=== PATIENT | female | born 1935 | race Caucasian/White ===

== ENCOUNTER 2019-06-15 10:36 | Emergency (ER) | payer OTHER ==
--- NOTE | 2019-06-15 10:55 | PDOC ---
History of Present Illness - General Stated Complaint: FALL Time Seen by Provider: 06/15/19 10:55 Past History - Past Medical History Allergies/Adverse Reactions: Allergies Allergy/AdvReac Type Severity Reaction Status Date / Time Sulfa (Sulfonamide Allergy Verified 06/15/19 11:03 Antibiotics) Home Medications: Ambulatory Orders Cephalexin Monohydrate [Keflex -] 500 mg PO BID 7 Days #14 capsule 06/15/19 ED Treatment Course - LABORATORY CBC & Chemistry Diagram: 06/15/19 11:00 06/15/19 11:00 Medical Decision Making - Medical Decision Making 06/15/19 11:42 HPI: 84yo F hx dementia (baseline A&Ox1, nonambulatory), UTIs, hypothyroidism, HTN, squamous cell carcinoma of skin, blepharitis, frequent falls, and hx superior rim pubis fracture BIBA from [facility] found down on L side with head against wall next to bed at lowest height this AM, LKN last PM. Pt was found down alert at baseline mental status. Per NH, pt was in [facility] yesterday. PCP - Jayme Henley ROS: unable to perform 2/2 dementia PE: Gen: Alert, NAD, comfortable-appearing. HEENT: PERRL, EOMI, MMM, NCAT. No conjunctival pallor. Sclera are non-icteric. b /l lower lid blepharitis CV: Regular rate and rhythm. No murmurs, rubs, or gallops. PULM: No resp distress. CTAB, no wheezes, rales, or rhonchi. ABD: soft, NT/ND, no rebound tenderness or guarding, no CVA tenderness. BACK: No TTP of c/t/l-spine. No step-offs or deformities. MSK: No bony deformities. 2+ pulses in all extremities. Pelvis stable, intact. No TTP of extremities. NEURO: alert but not oriented. PERRL. No gross CN deficits. Strength and sensation grossly intact throughout. Does not follow commands. EXTREMITIES: No cyanosis. No clubbing. No edema. No calf tenderness. No TTP of extremities. PSYCH: Normal mood. SKIN: Warm and dry. Normal capillary refill. No jaundice. No e/o trauma. +skin markings c/w known squamous cell carcinoma. MDM: 84yo F hx dementia (baseline A&Ox1, nonambulatory), UTIs, hypothyroidism, HTN, squamous cell carcinoma of skin, blepharitis, frequent falls, and hx superior rim pubis fracture BIBA from [facility] found down on L side with head against wall next to bed at lowest height this AM, LKN last PM. Hemodynamically stable, afebrile, alert but not oriented (baseline per NH and daughter), no other gross neurologic deficits or pains or e/o trauma. Ddx: no e/o trauma/pain, but r/o injuries 2/2 fall with CTH/c-spine, CXR, and pelvis/hip XR. Due to baseline AMS, consider seizure vs syncope vs mechanical fall from bed, ddx for seizure vs syncope includes ICH, stroke, ACS/NH, arrhythmia, infection, metabolic derangement, anemia, thyroid pathology -IVF -CTH/c-spine -EKG -CXR, Pelvic XR -CBC,CMP,Coags,Mg,Phos,TSH,Cardiac profile,UA/UC -Discussed with daughter Helen at [phone] - confirms baseline mental status -Dispo: pending w/u and reassessment 06/15/19 13:24 XRs reviewed: no acute pathology EKG reviewed: NSR, 68bpm, normal axis, normal intervals, no e/o acute ischemia CTs reviewed: no acute pathology Labs reviewed: no concerning findings Pending UA/UC straight cath. 06/15/19 14:55 UA reviewed: positive for UTI - Keflex Will discharge to [place] with Keflex and PCP f/u. Return precautions given to NH. NH understands all discharge instructions and all questions were answered. Discharge - Discharge Information Problems reviewed: Yes Clinical Impression/Diagnosis: UTI (urinary tract infection), Fall Condition: Stable Disposition: INTERMEDIATE FACILITY - Admission No - Additional Discharge Information Prescriptions: Cephalexin Monohydrate [Keflex -] 500 mg PO BID 7 Days #14 capsule - Follow up/Referral Referrals: Jayme Henley [Primary Care Provider] - - Patient Discharge Instructions Patient Printed Discharge Instructions: DI for Urinary Tract Infection (UTI) Additional Instructions: You have been diagnosed with a UTI. Take Keflex 500mg BID for 7 days for UTI. Follow up with your primary care doctor within [address] scan of your head and neck, your X-rays of your chest and pelvis, your EKG, and your blood work showed no other concerning emergent conditions. Return to the Emergency Department immediately for any new or concerning symptoms including vomiting, fever, abdominal pain, or passing out. - Post Discharge Activity
--- NOTE | 2019-06-15 10:57 | PDOC ---
Attending Attestation - Resident Resident Name: Radha Tobias - ED Attending Attestation I have performed the following: I have examined & evaluated the patient, The case was reviewed & discussed with the resident, I agree w/resident's findings & plan - HPI HPI: 06/15/19 11:31 84 YOF h/o Dementia, UTI, muscle weakness, hypothyorid, HTN, frequent falls from [place] after being found down next to her bed. Baseline nonambulatory. Alert, oriented x 0, mumbles, minimally communicative. - Physicial Exam PE: 06/15/19 10:56 Physical exam: General: demented, NAD, easily agitated HEENT: NCAT, PERRL, EOMI. b/l conjunctival erythema, no discharge. Airway intact. No battles sign or raccoon eyes. No e/o ocular. Dentition intact. No e/ o septal hematoma, nasal bridge stable. Neck: neck supple, no midline C spine tenderness or deformity, ROM intact. No anterior mass or crepitus, trachea midline. Resp: Lungs clear bilaterally Chest: no clavicle or chest wall tenderness or crepitus CVS: RRR, 2+ pulses throughout. Abdomen: Abdomen soft, nontender, nondistended. Back: Back nontender, no midline spinal tenderness along cervical/thoracic/ lumbar spine, FROM, no stepoffs. MSK: Pelvis stable, Extremities symmetric, no focal areas of tenderness or deformities, proximal and distally; no pain on axial loading. FROM in all extrem. Neuro: Alert, awake, oriented x 0, demented, mumbled speech (baseline) Skin: intact, normal color and well perfused. squamous cell lesions on chest wall, and lower extremities. 06/15/19 11:13 06/15/19 11:31 - Medical Decision Making 06/15/19 10:56 Vital Signs Temp Pulse Resp BP Pulse Ox 66 16 156/62 99 06/15/19 11:00 06/15/19 11:00 06/15/19 11:00 06/15/19 11:00 ddx: ICH, SDH/ EDH, skull fx, C spine injury/strain, extremity sprain/fracture, pelvis fracture. MSK contusion, msk spasms. Rib fractures. Clinically doubt Intra abdominal and thoracic injuries/bleed UTI, infection, pna, anemia, electrolyte/metabolic derangements, dehydration. labs and lytes/trop UA/culture, check for infection pt's hpi and pe is limited 2/ dementia 06/15/19 12:[address] negative for bleed mass or fracture. No evidence of infarction. CT C- spine is also negative for fracture subluxation. Degenerative changes noted. Patient does not endorse any neck pain No evidence of skull fracture, intracranial bleed, dental trauma, cervical, thoracic, or vertebral fracture or subluxation, no suspicion of thoracic, abdominal, pelvic or extremity injury by exam. 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 SI joints are patient, no signs of femoral dislocation, proximal right sided femoral fracture from previous injury with [address] Chest x-ray is unremarkable, no acute pathology labs and lytes wnl UA grossly positive with +nitrites, WBCs and leuk esterase, will treat as UTI, keflex x 1 wk course. f/u cultures stable for transfer back to [facility] with abx discharge back to [facility], with negative workup. no traumatic injuries, no medical findings to warrant admission. at baseline mental and physical status. 06/15/19 15:08 06/15/19 15:11 Heart Score/ECG Review #1 ECG reviewed & interpreted by me at: 10:55 General ECG Interpretation: Sinus Rhythm, Normal Rate, Normal Intervals 06/15/19 11:46 EKG normal sinus rhythm 60 bpm, no interval abnormalities, narrow QRS, ST and T wave segments and morphology normal. Nonspecific T wave abnormalities
[2019-06-15 11:02] VITALS: BMI 18.3
[2019-06-15 11:56] LABS: BASO % 0.3 % (0-2.0); EOS % 0.9 % (0-4.5); HEMATOCRIT 43.5 % (32.4-45.2); HEMOGLOBIN 14.5 GM/dL (10.7-15.3); LYMPH % 12.2 % (8-40); MCH 30.8 pg (25.7-33.7); MCHC 33.4 g/dl (32.0-36.0); MEAN PLT VOLUME 8.7 fl (7.5-11.1); MONO % 4.6 % (3.8-10.2); PLATELET COUNT 297 K/MM3 (134-434); RBC 4.73 M/mm3 (3.60-5.2); RDW 13.6 % (11.6-15.6); WHITE BLOOD COUNT 11.2 K/mm3 (4.0-10.0)
[2019-06-15 12:20] LABS: INR 0.97 (0.83-1.09); PROTHROMBIN TIME (PATIENT) 11.4 SEC (9.7-13.0)
[2019-06-15 12:23] LABS: ACTIVATED PTT 31.7 SECONDS (25.2-36.5)
[2019-06-15 12:30] LABS: ALBUMIN 3.8 g/dl (3.4-5.0); ALK PHOS 117 U/L (45-117); ANION GAP 8 MMOL/L (8-16); BILIRUBIN,TOTAL 0.3 mg/dL (0.2-1); BLOOD UREA NITROGEN 20.4 mg/dL (7-18); CALCIUM 9.5 mg/dL (8.5-10.1); CHLORIDE 106 mmol/L (98-107); CO2 28 mmol/L (21-32); CREATININE 0.7 mg/dL (0.55-1.3); GLUCOSE,RANDOM 140 mg/dL (74-106); PHOSPHOROUS 2.4 mg/dL (2.5-4.9); POTASSIUM 4.5 mmol/L (3.5-5.1); SGOT/AST 24 U/L (15-37); SGPT/ALT 18 U/L (13-61); SODIUM 142 mmol/L (136-145); TOT PROT 7.2 g/dl (6.4-8.2)
[2019-06-15] MEDS ORDERED: SODIUM CHLORIDE 0.9% 500 ML INFUS.BAG IV ONE (12:51)
[2019-06-15 14:40] LABS: EPI CELLS 5.1 /HPF (0-5/HPF); HYALINE CASTS 26 /lpf (0-8); URINE APPEARANCE TURBID; URINE BACTERIA >9000 /hpf (NEGATIVE); URINE BILIRUBIN NEGATIVE (NEGATIVE); URINE COLOR YELLOW; URINE GLUCOSE (UA) NEGATIVE (NEGATIVE); URINE KETONE NEGATIVE (NEGATIVE); URINE LEUK ESTERASE 2+ (NEGATIVE); URINE NITRITE POSITIVE (NEGATIVE); URINE PROTEIN NEGATIVE (NEGATIVE); URINE WBC 279 /hpf (0-5)
[2019-06-15] MEDS ORDERED: CEPHALEXIN MONOHYDRATE 500 MG CAPSULE (UD) PO ONE (14:57)
[2019-06-15] MEDS ORDERED: CEPHALEXIN MONOHYDRATE 500 MG CAPSULE (UD) ONE (15:07)
[2019-06-15 15:22] VITALS: BP 148/78; PULSE 98; TEMP 97.5
[2019-06-15 17:10] LABS: URINE RBC 18.6 /hpf (0-4)
--- NOTE | 2019-06-16 09:28 | EKG ---
Test Reason : Blood Pressure : / mmHG Vent. Rate : 068 BPM Atrial Rate : 068 BPM P-R Int : 200 ms QRS Dur : 084 ms QT Int : 434 ms P-R-T Axes : 052 -09 026 degrees QTc Int : 461 ms NORMAL SINUS RHYTHM NONSPECIFIC T WAVE ABNORMALITY ABNORMAL ECG NO PREVIOUS ECGS AVAILABLE Confirmed by Chapis Grullon ([id number]) on 06/16/2019 9:28:23 AM Referred By: Confirmed By:Chapis Grullon
== END 2019-06-15 16:00 ==
LOC: JER 10:36
DX: Z04.3 Encounter for examination and observation following other accident (principal); N39.0 Urinary tract infection, site not specified; W06.XXXA Fall from bed, initial encounter; Y93.89 Activity, other specified; Y92.122 Bedroom in nursing home as the place of occurrence of the external cause; Y99.8 Other external cause status; I10 Essential (primary) hypertension; E03.9 Hypothyroidism, unspecified; F03.90 Unspecified dementia, unspecified severity, without behavioral disturbance, psychotic disturbance, mood disturbance, and anxiety; R29.898 Other symptoms and signs involving the musculoskeletal system; R29.6 Repeated falls; Z85.828 Personal history of other malignant neoplasm of skin; Z87.440 Personal history of urinary (tract) infections; Z74.01 Bed confinement status
CPT/HCPCS: 36415; 70450-TC; 71045-TC-FY; 72125-TC; 72170-TC-FY; 80053; 81003; 82550; 83735; 84100; 84443; 84484; 85025; 85610; 85730; 87086; 87186; 93005; 93010; 99285-25